=== PATIENT | female | born 1990 | race Caucasian/White ===

== ENCOUNTER 2022-10-18 18:59 | Emergency (ER) | payer OTHER, SELFPAY ==
--- NOTE | 2022-10-18 19:11 | ED.GENADULT ---
HPI - General Adult General Chief complaint: Upper Respiratory Infection Stated complaint: . Time Seen by Provider: 10/18/22 19:11 Source: patient Mode of arrival: ambulatory Limitations: no limitations History of Present Illness HPI narrative: 31-year-old female patient presents to the [facility] with complaints of sore throat, congestion, runny nose, sneezing, coughing for the past 5-6 days. 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 Patient states she has tried [id number] Sudafed, Zyrtec, Tylenol, ibuprofen without much relief. Denies fevers that she is aware of. Denies chest pain, shortness of breath, abdominal pain, nausea, vomiting or diarrhea. Related Data Allergies Allergy/AdvReac Type Severity Reaction Status Date / Time No Known Allergies Allergy Unknown Verified 10/18/22 19:30 Review of Systems Review of Systems: CONSTITUTIONAL: Denies fever, chills, or sweats. EYES: Denies visual changes, redness, or discharge. ENT: Positive rhinorrhea, congestion, sore throat, and bilateral otalgia. CARDIOVASCULAR: Denies chest pain, palpitations, or edema. RESPIRATORY: positive cough or dyspnea. GASTROINTESTINAL: Denies abdominal pain, nausea, vomiting, or diarrhea. GENITOURINARY: Denies dysuria or hematuria. SKIN: Denies rash or itching. MUSCULOSKELETAL: Denies back pain, joint pain, or myalgia. NEUROLOGIC: Denies headache, numbness, or weakness. PSYCHIATRIC: Denies anxiety or depression. PMFSH Comments At the time of my signature I agree with nursing past medical history, surgical, social, and family history. There is no relevant family history pertinent to the presenting complaint. Exam Narrative: GENERAL: Well-appearing, well-nourished, and in no acute distress. HEAD: Normocephalic, atraumatic. EYES: PERRLA and EOMI. ENT: Nares with erythema and edema noted bilaterally, no rhinorrhea or epistaxis. Mucous membranes moist. posterior pharynx slight erythema, no tonsillar enlargement, no exudates or lesions present. Bilateral TMs are clear no erythema or foreign bodies the canal. NECK: Supple. No lymphadenopathy CHEST: Clear to auscultation. No respiratory distress. HEART: Regular rate and rhythm. No murmur heard. Normal peripheral pulses. ABDOMEN: Soft, nontender, nondistended, normal active bowel sounds. EXTREMITIES: Normal range of motion. No edema. SKIN: Warm, dry, no rash. NEURO: No focal deficits. Alert and oriented x3. Course Course Level of Care: Express Care Visit Reevaluation(s) Reevaluation #1: Re-evaluated patient swabs came back negative. Discussed with her that we will send the strep off for a culture it does come back positive at that time we will call her antibiotics. Discussed with patient most likely this is viral. We will discharge her home with an oral steroid for the sinusitis symptoms and Tessalon Perles for the cough. Patient verbalized understanding denies any other questions or concerns at this time Date: 10/18/22 Time: 19:51 Vital Signs Vital signs: Vital Signs Temperature 36.6 C 10/18/22 19:17 Pulse Rate 89 10/18/22 19:17 Respiratory Rate 18 10/18/22 19:17 Blood Pressure 148/87 H 10/18/22 19:17 Pulse Oximetry 100 10/18/22 19:17 Oxygen Delivery Room Air 10/18/22 19:17 Temperature 36.6 C 10/18/22 19:17 Pulse Rate 89 10/18/22 19:17 Respiratory Rate 18 10/18/22 19:17 Blood Pressure 148/87 H 10/18/22 19:17 Pulse Oximetry 100 10/18/22 19:17 Oxygen Delivery Room Air 10/18/22 19:17 Vital signs reviewed The patient has been informed that they may have pre-hypertension or Hypertension based on a BP reading in the department. I recommend that the patient call the primary care provider listed on their discharge instructions or a physician of their choice this week to arrange follow up for further evaluation of possible pre-hyp
[2022-10-18 19:17] VITALS: BP 148/87; PULSE 89; RESP 18; TEMP 36.6; O2SAT 100
== END 2022-10-18 19:53 | disposition home or self-care (01) ==
PROVIDERS: Emergency Provider Nurse Practitioner Family
DX: J01.90 Acute sinusitis, unspecified (principal); J02.9 Acute pharyngitis, unspecified; Z20.822 Contact with and (suspected) exposure to COVID-19
CPT/HCPCS: 87081; 87426; 87804; 87880; 99213; C9803; G0463